=== PATIENT | female | born 1975 | race Caucasian/White ===

== ENCOUNTER 2019-10-20 08:06 | Outpatient (CLI) | payer OTHER, SELFPAY ==
--- NOTE | ~2019-10-20 | XR_ITS ---
EXAMINATION: XR chest 2V 10/20/2019 08:36 INDICATION: Dyspnea. Cough. PROCEDURE: 2 view chest COMPARISON: 03/13/2010 FINDINGS: The lungs are clear. The cardiomediastinal silhouette is within normal limits. There are no pleural effusions. There is no pneumothorax suspected. IMPRESSION: 1: NO ACUTE CARDIOPULMONARY DISEASE. Reviewed, dictated and finalized at location A.
== END 2019-10-20 08:07 | disposition home or self-care (01) ==
LOC: ANHIMG 08:17
DX: R06.09 Other forms of dyspnea (principal)
CPT/HCPCS: 71046

== ENCOUNTER 2020-01-04 06:37 | Emergency (ER) | payer OTHER, SELFPAY ==
--- NOTE | ~2020-01-04 | CT_ITS ---
EXAMINATION: CT abdomen pelvis wo con DATE: 01/04/2020 07:41 INDICATION: Left flank pain. Nausea. Low abdominal cramping. TECHNIQUE: Computed tomography (CT) of the abdomen and pelvis was performed without intravenous contr ast. Automated exposure control and iterative reconstruction technique were employed. The dose-length product was 435.93 mGy-cm. COMPARISON: None. FINDINGS: The visualized portions of the lung bases demonstrate minimal atelectasis. No pleural effus ion. The heart size is normal. No pericardial effusion. The liver, spleen, gallbladder, pancreas, adr enal glands, and left kidney are normal. There is a 2 mm stone in right kidney. There are fibroids in the uterus. There are no dilated loops of bowel. The appendix contains appendicoliths, but is otherw ise normal. There are no pathologically enlarged lymph nodes. There is no free intraperitoneal fluid. There is a chronic compression fracture of T12. There is mild lumbar spondylosis. IMPRESSION: 1. Uterine fibroids. 2. 2 mm nonobstructing right kidney stone. Reviewed, dictated and finalized at location A.
[2020-01-04 06:38] VITALS: BP 142/108; PULSE 87; RESP 14; TEMP 36.8; O2SAT 100
[2020-01-04 07:02] LABS: Basophils Absolute Auto 0.1 K/mm3 (0.0-0.1); Basophils Percent Auto 0.5 % (0.2-1.2); Eosinophils Absolute Auto 0.2 K/mm3 (0-0.3); Eosinophils Percent Auto 1.1 % (0-4.4); Hematocrit 41.8 % (37.0-47.0); Hemoglobin 14.2 g/dL (12.0-15.0); Immature Granulocyte Absolute 0.04 K/mm3 (0.00-0.031); Immature Granulocyte Percent A 0.3 % (0-0.5); Lymphocytes Percent Auto 16.7 % (18.3-44.2); Mean Corpuscular Hemoglobin 30.9 pg (26-34); Mean Corpuscular Volume 91.1 fl (80-100); Mean Platelet Volume 9.8 fl (7.4-10.4); Monocytes Absolute Auto 0.9 K/mm3 (0.1-0.6); Monocytes Percent Auto 6.3 % (2.6-8.5); Neutrophils Absolute Auto 10.4 K/mm3 (1.3-6.7); Neutrophils Percent Auto 75.1 % (45.5-73.1); Platelet Count Result 367 k/mm3 (150-375); Red Blood Count 4.59 M/mm3 (4.2-5.4); Red Cell Distribution Width 12.6 % (11.5-14.5); White Blood Count 13.8 K/mm3 (4.5-10.0)
[2020-01-04 07:10] LABS: Add Urine Microscopic? YES; Appearance Urine Cloudy (Clear); Bilirubin Urine Negative (Negative); Blood Urine 3+ (Negative); Glucose Urine UA Negative (Negative); Ketones Urine Negative (Negative); Leukocyte Esterase Ur 1+ LEU/UL (Negative); Mucus Urine Few /lpf; Nitrate Urine Positive (Negative); Protein Urine 2+ mg/dL (Negative); RBC Urine >75 /hpf (0-2); Specific Grav Ur 1.018 (1.001-1.035); Squamous Epithelial Cell Urine Moderate /hpf (Few); Urobilinogen Urine Negative mg/dL (<2.0); WBC Clumps Urine Present /HPF; WBC Urine >75 /hpf
[2020-01-04 07:13] LABS: Alanine Aminotransferase 21 U/L (4-35); Albumin Level 4.3 g/dL (3.5-5.1); Alkaline Phosphatase 73 U/L (38-126); Anion Gap 6 mmol/L (8-16); Aspartate Amino Transferase 27 U/L (14-36); Bilirubin,Total 0.3 mg/dL (0.2-1.3); Blood Urea Nitrogen 12 mg/dL (7-17); Carbon Dioxide 24 mmol/L (22-30); Chloride 106 mmol/L (98-107); Estimated Glomerular Filt Rate > 60; Glucose 112 mg/dL (65-105); Lipase 49 U/L (23-300); Potassium 3.9 mmol/L (3.4-5.0); Sodium 136 mmol/L (137-145)
[2020-01-04 07:14] LABS: Color Urine Dark Red (Yellow)
--- NOTE | 2020-01-04 07:15 | ED.ABDPAIN ---
HPI - Abdominal Pain General Chief Complaint: Abdominal Pain Stated Complaint: lower abd cramping Time Seen by Provider: 01/04/20 06:59 History of Present Illness HPI narrative: Patient presents with her for lower abdominal pain today. She started her. 4 days ago and she said that her menstrual cramps have gotten worse that she is gotten older. When she got up this morning the lower abdominal pain was so severe that she bent over and had significant diaphoresis and chills and her recorded temperature was 94. She did not have nausea or vomiting. She has blood in her urine just because of her vaginal bleeding. Now the pain is 7 out of 10 but it was 10 out of 10 at home. She does not know if she has fibroids. 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 Her previous surgeries include breast lumpectomy. She smokes cigarettes, drinks alcohol, does not do marijuana. She takes medication for cholesterol. She works in healthcare. MD elicited complaint: abdominal pain Pertinent past history: none Onset (ago): hour(s) Pain Consistency: constant Location: LUQ, LLQ and suprapubic Severity: severe Pain scale (0-10): 7 Quality: cramping Radiation: back Exacerbating factors: nothing Relieving factors: nothing Associated symptoms: chills Related Data Hx Last Menstrual Period: 4 days ago Patient : No Home Medications Medication Instructions Recorded Confirmed rosuvastatin mg 01/04/20 Allergies Allergy/AdvReac Type Severity Reaction Status Date / Time codeine Allergy Unknown Insomnia Verified 01/04/20 06:48 Iodinated Contrast Media Allergy Unknown Rash Verified 01/04/20 06:48 Penicillins Allergy Unknown Unknown Verified 01/04/20 06:48 hydrocodone Allergy Insomnia Verified 01/04/20 06:48 Review of Systems Review of Systems: Narrative: CONSTITUTIONAL: Denies fever, but has chills, and sweats. EYES: Denies visual changes, redness, or discharge. ENT: Denies rhinorrhea, congestion, sore throat, or otalgia. CARDIOVASCULAR: Denies chest pain, palpitations, or edema. RESPIRATORY: Denies cough or dyspnea. GASTROINTESTINAL: She has abdominal pain, but not nausea, vomiting, or diarrhea. GENITOURINARY: Denies dysuria or hematuria. SKIN: Denies rash or itching. MUSCULOSKELETAL: Denies back pain, joint pain, or myalgia. NEUROLOGIC: Denies headache, numbness, or weakness. . PMFSH Past Medical History Medical History Hypercholesterolemia Surgical History Surgical History (Updated 01/04/20 @ 07:18 by Shirin Reddy MD) History of lumpectomy of both breasts Family History Family History (Updated 08/24/16 @ 23:56 by DOCTOR UNKNOWN) Father Hypertension Family history of elevated blood lipids, Onset Age: 62 Family history of coronary artery disease, Onset Age: 62 Patient's father is Acute myocardial infarction Mother Hypertension Family history of elevated blood lipids Patient's mother is in good health Sibling Hypertension Family history of elevated blood lipids Family history of malignant melanoma Patient's sister is in good health Patient's brother is in good health Grandparent Family history of coronary artery disease, Onset Age: 78 Social History Social History (Updated 01/04/20 @ 07:18 by Shirin Reddy MD) Smoking status: Current every day smoker Alcohol intake: current Substance use: never Gender identity (if verbalized by the patient): Female Exam Narrative: Exam Narrative: GENERAL: Well-appearing, well-nourished, and in no acute distress. HEAD: Normocephalic, atraumatic. EYES: PERRLA and EOMI. ENT: Nares clear, no rhinorrhea or epistaxis. Mucous membranes moist. NECK: Supple. CHEST: Clear to auscultation. No respiratory distress. HEART: Regular rate and rhythm. No murmur heard. Normal peripheral pulses. ABDOMEN: Soft, tender, nondistended, normal active bowel sounds. EXTREMITIES: Normal rang
[2020-01-04] MEDS: MORPHINE SULFATE 4 MG/ML INJ IV PUSH (07:20)
[2020-01-04] MEDS: SODIUM CHLORIDE 0.9% IV 1,000 ML 999 ML IV CONT (07:33)
[2020-01-04 08:18] VITALS: BP 122/82; PULSE 67; RESP 18; O2SAT 99
--- NOTE | 2020-01-08 09:01 | PC.NURSE ---
LATE ENTRY This note is being entered to document information to the patient's record. The following information was omitted on [01/08/20], by [Marilin LUCIANO stopped at 0833 on 01/04/20].
== END 2020-01-04 08:31 | disposition home or self-care (01) ==
PROVIDERS: Emergency Medicine; Emergency Provider Emergency Medicine
DX: N39.0 Urinary tract infection, site not specified (principal); D25.9 Leiomyoma of uterus, unspecified; S22.080A Wedge compression fracture of T11-T12 vertebra, initial encounter for closed fracture; N20.0 Calculus of kidney; E78.5 Hyperlipidemia, unspecified; F17.210 Nicotine dependence, cigarettes, uncomplicated; X58.XXXA Exposure to other specified factors, initial encounter
CPT/HCPCS: 36415; 74176; 80053; 81001; 81025; 83690; 85025; 87077; 87086; 87088; 87186; 96365; 96375; 99284; J0696; J2270; J7030

== ENCOUNTER → 2020-01-15 09:07 | Outpatient (CLI) | payer OTHER, SELFPAY ==
--- NOTE | ~2020-01-15 | DEXA_ITS ---
Bone Density Report Name: Marisol Reyes Age: 44 Sex: Female Ethnicity: White Date of : 1975 Indication: prior fracture; Referring Provider: Avelino Nation Study: Bone densitometry was performed. Exam Date: January 15, 2020 Accession number: [id number] Bone Density: Region BMD T-score Z-score Classification AP Spine (L1-L4) 1.074 0.2 0.8 Normal Femoral Neck (Left) 0.768 -0.7 -0.2 Normal Total Hip (Left) 0.937 0.0 0.3 Normal Femoral Neck (Right) 0.770 -0.7 -0.2 Normal Total Hip (Right) 0.886 -0.5 -0.1 Normal Total Hip Mean 0.912 -0.3 0.1 Normal World Health Organization criteria for BMD impression classify patients as: Normal (T-score at or above -1.0), Osteopenia (T-score between -1.0 and -2.5), or Osteoporosis (T-score at or below -2.5). 10-year Fracture Risk: FRAX not reported because: Premenopausal woman All T-scores for Spine Total, Hip Total, Femoral Neck at or above -1.0 Prior hip or vertebral fracture Clinical Information Provided by Patient: Have had a previous hip or vertebral fracture Has had a low trauma fracture Smokes Has used the following medications: Vitamin D, some vitamins Patient maximum height was 64.63 No regular weight bearing exercise Drinks caffeinated beverages Onset of menses at age 8 Premenopausal Number of children 0 Impression: The patient's bone mass is within expected range for age, gender and ethnicity. The patient has risk factors, including: smoking, previous fracture. Discussion: BONE DENSITY IS WITHIN EXPECTED LIMITS FOR AGE, SEX AND RACE. HISTORY OF FRACTURE. Although there is a predictable association between low bone mass and the risk of osteoporotic fractures in untreated postmenopausal women, there are no data relating bone density and fracture risk in younger women. The ISCD position is that the diagnosis of ?low bone mass? or ?osteoporosis? should not be made on densitometric criteria alone. WHO criteria only apply to postmenopausal women. Further evaluation should be considered given the patient's history of fracture at a young age. The patient should follow a healthful lifestyle (good nutrition with adequate calcium and vitamin D, and appropriate weight-bearing exercise). Follow-Up: Consider a repeat BMD and Vertebral Fracture Assessment (VFA) exam in 2 years or sooner if medically necessary, to reassess this patient's status. Reported by: [facility] on 01/15/2020 11:40:00 AM. Reviewed, dictated and finalized at location AIris QUACH
== END ==
DX: S22.080S Wedge compression fracture of T11-T12 vertebra, sequela (principal)
CPT/HCPCS: 77080

== ENCOUNTER → 2020-01-22 08:13 | Outpatient (CLI) | payer OTHER, SELFPAY ==
--- NOTE | ~2020-01-22 | US_ITS ---
EXAMINATION: US transvaginal DATE: 01/22/2020 08:50 INDICATION: Uterine fibroids on CT TECHNIQUE: Multiple endovaginal sonographic images of the pelvis were obtained. COMPARISON: CT, 01/04/2020 FINDINGS: The uterus measures 9.4 x 5.0 x 5.5 cm. There are several fibroids of the uterus which are in an intramural and submucosal location. One submucosal fibroid measuring 12 mm exerts mass effect o n the posterior endometrium. The largest intramural fibroid is partially calcified and measures up to 2.7 cm. Multiple nabothian cysts are also noted. The endometrial complex measures 9 mm. The right ov damaris measures 3.3 x 2.5 x 2.5 cm. The left ovary measures 2.5 x 1.8 x 1.5 cm. There is normal vascular flow in the ovaries. There is no free fluid in the pelvis. IMPRESSION: 1. Multiple uterine fibroids at least one of which is submucosal in location and exerts mass effect o n the endometrium. Reviewed, dictated and finalized at location A. IMPRESSION: 1. Multiple uterine fibroids at least one of which is submucosal in location an d exerts mass effect on the endometrium.
== END ==
DX: D25.9 Leiomyoma of uterus, unspecified (principal)
CPT/HCPCS: 76830

== ENCOUNTER 2020-03-12 10:35 | Emergency (ER) | payer OTHER, SELFPAY ==
[2020-03-12 10:42] VITALS: BP 137/87; PULSE 100; RESP 18; TEMP 37.2; O2SAT 100
--- NOTE | 2020-03-12 10:46 | ED.EAR ---
HPI - Ear Problem General Chief complaint: Ear Stated complaint: ears clogged Time Seen by Provider: 03/12/20 10:38 Source: patient Mode of arrival: ambulatory Limitations: no limitations History of Present Illness HPI Narrative: 44 y/o female. PMH includes: HLD. Presents to ED today with acute complaints of bilateral ears clogged up . She reports worsening manifestations in past 1 week. She states that she usually gets clogged ears this time of year . Pt reports mild RT auditory 'aching', as well as 'muffled hearing' bilateral. No fever, chills. No congestion, cough. No severe auditory pain or complete auditory loss. She has been seen per her PCP within past 48 hours, and notes to have been started on Neomycin/Ploymixin Otic. She reports no relief with these gtts. No additional acute c/o upon PE. MD Complaint: decreased hearing Related Data Home Medications Medication Instructions Recorded Confirmed rosuvastatin 20 mg 01/04/20 [id number] 2 drp TID 03/12/20 03/12/20 Allergies Allergy/AdvReac Type Severity Reaction Status Date / Time codeine Allergy Unknown Insomnia Verified 01/04/20 06:48 Iodinated Contrast Media Allergy Unknown Rash Verified 01/04/20 06:48 Penicillins Allergy Unknown Unknown Verified 01/04/20 06:48 hydrocodone Allergy Insomnia Verified 01/04/20 06:48 Review of Systems Review of Systems: Narrative: CONSTITUTIONAL: Denies fever, chills, sweats. EYES: Denies visual changes, redness, discharge. ENT: Denies rhinorrhea, congestion, sore throat, otalgia. Positive 'muffled hearing', ear wax. CARDIOVASCULAR: Denies chest pain, palpitations, edema. RESPIRATORY: Denies dyspnea, wheezing, cough GASTROINTESTINAL: Denies abdominal pain, nausea, vomiting, diarrhea. GENITOURINARY: Denies dysuria, hematuria, abnormal discharge SKIN: Denies rash or itching. MUSCULOSKELETAL: Denies acute back pain, joint pain, or myalgia. NEUROLOGIC: Denies numbness, or focal weakness. PSYCHIATRIC: Denies anxiety or depression. [facility] Past Medical History Medical History Hypercholesterolemia Surgical History Surgical History History of lumpectomy of both breasts Family History Family History Father Hypertension Family history of elevated blood lipids, Onset Age: 62 Family history of coronary artery disease, Onset Age: 62 Patient's father is Acute myocardial infarction Mother Hypertension Family history of elevated blood lipids Patient's mother is in good health Sibling Hypertension Family history of elevated blood lipids Family history of malignant melanoma Patient's sister is in good health Patient's brother is in good health Grandparent Family history of coronary artery disease, Onset Age: 78 Social History Social History Smoking status: Current every day smoker Alcohol intake: current Substance use: never Gender identity (if verbalized by the patient): Female Exam Narrative: Exam Narrative: GENERAL: This is a well-nourished, well-developed patient, in no apparent distress. HEAD: normocephalic, atraumatic. EYES: PERRL. Sclera clear/white. Vision is grossly intact. EARS: External ears normal, auditory canals with cerumen accumulation bilateral (RT > burdensome than LT), TMs normal without perforation. Hearing grossly intact. NOSE: External nose normal with no obvious nasal discharge, nares without redness, no rhinorrhea. THROAT: Mucous membranes moist, posterior pharynx clear. NECK: Neck supple, non-tender without lymphadenopathy, masses or thyromegaly. CARDIOVASCULAR: Regular rate and rhythm without murmurs, gallops, or rubs. RESPIRATORY: Clear to auscultation. Breath sounds equal bilaterally. No wheezes, rales, or rhonchi.
[2020-03-12 10:51] VITALS: BP 137/87; PULSE 100; RESP 18; TEMP 37.2; O2SAT 100
--- NOTE | 2020-03-12 10:57 | PC.NURSE ---
ear irrigation with warm water by Chandni SIERRA
== END 2020-03-12 11:07 | disposition home or self-care (01) ==
PROVIDERS: Emergency Provider Nurse Practitioner Adult Health
DX: H61.23 Impacted cerumen, bilateral (principal); H65.03 Acute serous otitis media, bilateral; F17.200 Nicotine dependence, unspecified, uncomplicated; E78.00 Pure hypercholesterolemia, unspecified
CPT/HCPCS: 69210; 99213; A9270; G0463

== ENCOUNTER 2020-06-06 10:04 | Emergency (ER) | payer OTHER, SELFPAY ==
--- NOTE | 2020-06-06 10:16 | ED.GENADULT ---
HPI - General Adult General Chief complaint: Urogenital-Female Stated complaint: uti Time Seen by Provider: 06/06/20 10:21 Source: patient and RN notes reviewed Mode of arrival: ambulatory Limitations: no limitations History of Present Illness HPI narrative: 45-year-old female presents with urinary complaints for the past 3 days. Marisol reports on 06/03/20 she started having burning, frequency, urgency, diffused lower abdominal, and vomiting, diffused lower abdominal and vomiting has resolved, other symptoms increased over the past 24 hours. No treatment. History of Nephrolithiasis and hematuria. Denies fever or chills. No significant pelvic pain. No vaginal discharge.? No concerns for STDs. Exacerbating factors consist of urinating.? Denies hematuria or abnormal vaginal bleeding. Denies being , LMP currently started on 05/28/20. No flank pain. Remains active. The patient reports she have not been diagnosed with COVID-19. The patient reports she is not waiting for the results of a COVID-19 lab test. The patient reports she do not have chills, weakness, or fatigue. The patient reports she do not have a new or worsening cough or shortness of breath. Denies chest pain. The patient reports she do not have any rhinorrhea, congestion, sore throat, loss of taste, nausea, vomiting, abdominal pain, and diarrhea. Tolerating po intake well. Denies recent traveling. Denies concerns for COVID-19 or exposures been home with limited outdoor exposure except for essential household needs, work, and return home. At this time, patient is not suspected of having COVID-19. Some parts of this dictation were generated by voice recognition software and may contain typographical and/or grammatical inaccuracies. Related Data Home Medications Medication Instructions Recorded Confirmed rosuvastatin 20 mg DAILY 01/04/20 06/06/20 Allergies Allergy/AdvReac Type Severity Reaction Status Date / Time codeine Allergy Unknown Insomnia Verified 01/04/20 06:48 Iodinated Contrast Media Allergy Unknown Rash Verified 01/04/20 06:48 Penicillins Allergy Unknown Unknown Verified 01/04/20 06:48 hydrocodone Allergy Insomnia Verified 01/04/20 06:48 ciprofloxacin [From Cipro] AdvReac Abdominal Verified 06/06/20 10:46 Pain Review of Systems Review of Systems: Narrative: CONSTITUTIONAL: Denies fever, chills, sweats. EYES: Denies visual changes, redness, discharge. ENT: Denies rhinorrhea, congestion, sore throat, otalgia. CARDIOVASCULAR: Denies chest pain, palpitations, edema. RESPIRATORY: Denies dyspnea, wheezing, cough. GASTROINTESTINAL: Denies abdominal pain, nausea, vomiting, diarrhea. GENITOURINARY: Complains of hematuria, dysuria (burning, frequency, and urgency). Denies abnormal discharge. SKIN: Denies rash or itching. MUSCULOSKELETAL: Denies acute back pain, joint pain, or myalgia. NEUROLOGIC: Denies numbness or focal weakness. PSYCHIATRIC: Denies anxiety or depression. All systems reviewed & are unremarkable except as noted in HPI and below. [facility] Past Medical History Medical History (Updated 06/06/20 @ 11:13 by COLE Beltran) Hypercholesterolemia Kidney stones Uterine fibroid UTI (urinary tract infection) Surgical History Surgical History History of lumpectomy of both breasts Family History Family History Father Hypertension Family history of elevated blood lipids, Onset Age: 62 Family history of coronary artery disease, Onset Age: 62 Patient's father is Acute myocardial infarction Mother Hypertension Family history of elevated blood lipids Patient's mother is in good health Sibling Hypertension Family history of elevated blood lipids Family history of malignant melanoma Patient's sister is in good health Patient's brother is in good health Grandparent
[2020-06-06 10:19] VITALS: BP 145/89; PULSE 66; RESP 20; TEMP 37; O2SAT 99
== END 2020-06-06 10:45 | disposition home or self-care (01) ==
PROVIDERS: Emergency Provider Nurse Practitioner Family
DX: R30.0 Dysuria (principal); R31.9 Hematuria, unspecified; F17.210 Nicotine dependence, cigarettes, uncomplicated; E78.00 Pure hypercholesterolemia, unspecified
CPT/HCPCS: 81003; 87077; 87086; 87088; 87186; 99213; G0463

== ENCOUNTER → 2020-06-13 15:46 | Outpatient (CLI) | payer OTHER, SELFPAY ==
--- NOTE | ~2020-06-13 | XR_ITS ---
XR abdomen/kub 1V DATE: 06/13/2020 16:03 INDICATION: Right kidney stone TECHNIQUE: AP projection, 2 views COMPARISON: 01/04/[address] abdomen pelvis FINDINGS: A couple of calcified pelvic phleboliths are noted on each side, present on 01/04/2020 CT ab domen pelvis examination. No obvious urinary tract calcification is evident on the current KUB. There was one punctate nonobstr ucting right renal calculus on 01/04/2020 which is neither definitively confirmed or excluded on this KUB. No visceromegaly is evident. The psoas shadows are intact. No bowel obstruction is detected. The lung bases are clear. Heart size appears within normal range. Again noted is compression fracture deformity of T12. IMPRESSION: Nonspecific abdomen Reviewed, dictated and finalized at Location A. Reviewed, dictated and finalized at location A. CLINICAL ADVISOR IMPRESSION: Nonspecific abdomen
== END ==
PROVIDERS: Visit Provider Urology
DX: N20.0 Calculus of kidney (principal)
CPT/HCPCS: 74018

== ENCOUNTER 2020-12-19 10:13 | Emergency (ER) | payer BC, SELFPAY ==
[2020-12-19 10:37] VITALS: BP 144/93; PULSE 82; RESP 18; TEMP 37.3; O2SAT 100
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
== END 2020-12-19 11:27 | disposition home or self-care (01) ==
PROVIDERS: Emergency Provider Nurse Practitioner
DX: L08.9 Local infection of the skin and subcutaneous tissue, unspecified (principal); F17.210 Nicotine dependence, cigarettes, uncomplicated; E78.00 Pure hypercholesterolemia, unspecified
CPT/HCPCS: 99212; G0463

== ENCOUNTER → 2021-01-31 10:37 | Outpatient (CLI) | payer BC, SELFPAY ==
--- NOTE | ~2021-01-31 | US_ITS ---
EXAMINATION: US pelvic complete w TV DATE: 01/31/2021 11:03 INDICATION: Follow-up fibroids. Comparison:No prior studies for comparison. TECHNIQUE: Multiple transabdominal and endovaginal sonographic images of the pelvis performed. FINDINGS: The uterus measures 8.8 x 5.4 x 6.9 cm. There are multiple uterine fibroids, largest measur ing 2.7 cm. The endometrial complex measures 10 mm. The right ovary is not visualized. Left ovary measures 3.1 x 2.3 x 2.1 cm. There is no free fluid in the pelvis. There are no abnormal masses seen on either side. IMPRESSION: 1. Uterine fibroids, largest measuring 2.7 cm. Reviewed, dictated and finalized at location A.
== END ==
PROVIDERS: Visit Provider Obstetrics & Gynecology
DX: N92.1 Excessive and frequent menstruation with irregular cycle (principal); D25.9 Leiomyoma of uterus, unspecified
CPT/HCPCS: 76830; 76856

== ENCOUNTER 2023-08-01 10:21 | Emergency (ER) | payer BC, SELFPAY ==
--- NOTE | ~2023-08-01 | US_ITS ---
EXAMINATION: US pelvic complete w TV DATE: 08/01/2023 14:26 INDICATION: Left-sided flank pain and left ovarian cyst. TECHNIQUE: Multiple transabdominal and endovaginal sonographic images of the pelvis were obtained. COMPARISON: 01/31/2021 FINDINGS: The anteverted uterus measures 9.0 x 5.2 x 6.3 cm. The endometrial complex measures 7 mm in thicknes s. There are uterine fibroids, the largest including 3.0 cm and 1.6 similar hypoechoic fibroids in th e posterior uterine body and a 2.3 cm fibroid at the right anterior uterine fundus with internal echo genic and shadowing coarse calcifications. There is a 4.8 3.7 cm mixed solid and cystic mass at the c ervix. The right ovary is not visualized The left ovary measures 5.4 x 3.75 4.0 cm and contains a 4.1 x 3.6 x 3.1 cm simple appearing anechoic left ovarian cyst. There is a second 1.2 cm anechoic left ovarian cyst/follicle. There is normal vascular flow in the ovaries. There is no free fluid in the pelvis. IMPRESSION: 1. Nonspecific 4.8 x 3.7 cm mixed solid and cystic mass at the cervix which could be either malignant including cervical adenocarcinoma or adenoma malignum or benign including tunnel cluster, uterine ce rvicitis, endocervical hyperplasia or multiple nabothian cysts. 2. A couple simple appearing anechoic left ovarian cysts/follicles the larger measuring 4.1 cm. 3. Several uterine fibroids. Reviewed, dictated and finalized at location L. IMPRESSION: 1. Nonspecific 4.8 x 3.7 cm mixed solid and cystic mass at the cervix which cou ld be either malignant including cervical adenocarcinoma or adenoma malignum or benign including tunnel cluster, uterine cervicitis, endocervical hyperplasia or multiple nabothian cysts. 2. A couple simple appearing anechoic left ovarian cysts/follicles the larger m easuring 4.1 cm. 3. Several uterine fibroids.
--- NOTE | ~2023-08-01 | CT_ITS ---
EXAMINATION: CT abdomen pelvis wo con DATE: 08/01/2023 12:22 INDICATION: Left flank pain. TECHNIQUE: Computed tomography (CT) of the abdomen and pelvis was performed without intravenous contr ast. Automated exposure control and iterative reconstruction technique were employed. The dose-length product was 295.57 mGy-cm. COMPARISON: CT abdomen and pelvis 01/04/2020 FINDINGS: The visualized portions of the lung bases demonstrate mild atelectasis. No pleural effusion . The heart size is normal. No pericardial effusion. The liver, gallbladder, spleen, pancreas, adrena l glands, and kidneys are normal. There is no urolithiasis. There is a 3.6 cm cyst in left ovary. The appendix is normal. There are no dilated loops of bowel. Aortic atherosclerosis is noted. There are no pathologically enlarged lymph nodes. There is no free intraperitoneal fluid. There are fibroids in the uterus. There is mild thoracic spondylosis. There is a chronic compression fracture of T12. IMPRESSION: 1. 3.6 cm cyst in left ovary, likely a follicular cyst. 2. No urolithiasis. 3. Uterine fibroids. Reviewed, dictated and finalized at location A.
[2023-08-01 10:40] VITALS: BP 134/78; PULSE 98; RESP 16; TEMP 36.9; O2SAT 99
[2023-08-01 11:46] LABS: Appearance Urine Clear (Clear); Bilirubin Urine Negative (Negative); Blood Urine Negative (Negative); Color Urine Yellow (Yellow); Glucose Urine UA Negative (Negative); Ketones Urine Negative (Negative); Leukocyte Esterase Ur Negative LEU/UL (Negative); Nitrate Urine Negative (Negative); Protein Urine Negative (Negative); Urobilinogen Urine 0.2 mg/dL (<2.0); pH Urine 6.5 (5.0-9.0)
[2023-08-01 11:49] LABS: Add Urine Microscopic? NO
[2023-08-01] MEDS: KETOROLAC 30 MG/ML VIAL (*BKC) IV PUSH (12:12)
[2023-08-01] MEDS: SODIUM CHLORIDE 0.9% IV 1,000 ML 999 ML IV CONT (12:12)
[2023-08-01 12:30] LABS: Basophils Percent Auto 0.3 % (0.2-1.2); Eosinophils Absolute Auto 0.1 K/mm3 (0-0.3); Eosinophils Percent Auto 0.8 % (0-4.4); Hematocrit 41.6 % (37.0-47.0); Hemoglobin 13.7 g/dL (12.0-15.0); Immature Granulocyte Absolute 0.06 K/mm3 (0.00-0.031); Immature Granulocyte Percent A 0.5 % (0-0.5); Lymphocytes Absolute Auto 2.09 K/mm3 (0.9-3.2); Lymphocytes Percent Auto 17.6 % (18.3-44.2); Mean Corpuscular HGB Conc 32.9 g/dl (32-36); Mean Corpuscular Hemoglobin 29.8 pg (26-34); Mean Corpuscular Volume 90.4 fl (80-100); Mean Platelet Volume 9.4 fl (7.4-10.4); Monocytes Absolute Auto 0.8 K/mm3 (0.1-0.6); Monocytes Percent Auto 6.5 % (2.6-8.5); Neutrophils Absolute Auto 8.8 K/mm3 (1.3-6.7); Neutrophils Percent Auto 74.3 % (45.5-73.1); Platelet Count Result 409 k/mm3 (150-375); White Blood Count 11.9 K/mm3 (4.5-10.0)
[2023-08-01 12:37] LABS: Alanine Aminotransferase 20 U/L (6-35); Albumin Level 4.3 g/dL (3.5-5.1); Alkaline Phosphatase 85 U/L (38-126); Anion Gap 9 mmol/L (8-16); Aspartate Amino Transferase 26 U/L (14-36); Bilirubin,Total 0.3 mg/dL (0.2-1.3); Blood Urea Nitrogen 7 mg/dL (7-17); Calcium 9.4 mg/dL (8.4-10.2); Carbon Dioxide 22 mmol/L (22-30); Chloride 107 mmol/L (98-107); Estimated CRCL calculation 86 ml/min; Estimated Glomerular Filt Rate > 60; Glucose 91 mg/dL (65-110); Potassium 3.7 mmol/L (3.4-5.0); Sodium 138 mmol/L (137-145)
[2023-08-01 14:20] VITALS: BP 118/79; PULSE 81; RESP 17; O2SAT 100
--- NOTE | 2023-08-01 15:18 | ED.GENADULT ---
HPI - General Adult General Chief complaint: Back Pain/Injury Stated complaint: L FLANK PAIN Time Seen by Provider: 08/01/23 11:32 History of Present Illness HPI narrative: patient is a 48-year-old female who presents ER with left flank pain and left lower quadrant abdominal pain. The flank pain began 2 days ago. It started radiating around to the abdomen. She was seen by her PCP yesterday. Diagnosed with a UTI and started on Bactrim. Pain settled into the left lower quadrant today so she came in for further evaluation. No fevers or chills or sweats. No urinary frequency urgency. No history of diverticulitis/diverticulosis. No history of kidney stones. Related Data Home Medications Medication Instructions Recorded Confirmed rosuvastatin 20 mg tablet 20 mg DAILY 01/04/20 12/19/20 Allergies Allergy/AdvReac Type Severity Reaction Status Date / Time codeine Allergy Unknown Insomnia Verified 12/19/20 11:19 Iodinated Contrast Media Allergy Unknown Rash Verified 12/19/20 11:19 Penicillins Allergy Unknown Unknown Verified 12/19/20 11:19 hydrocodone Allergy Insomnia Verified 12/19/20 11:19 shellfish derived Allergy Rash Verified 08/01/23 11:36 ciprofloxacin [From Cipro] AdvReac Abdominal Verified 12/19/20 11:19 Pain Review of Systems Review of Systems: All systems reviewed & are unremarkable except as noted in HPI and below Constitutional: Constitutional: Reports no additional constitutional complaints ENT: Reports system reviewed and no additional complaints, except as documented Cardiovascular: Cardiovascular: Reports no additional cardiovascular complaints Respiratory: Respiratory: Reports no additional respiratory complaints Gastrointestinal: Gastrointestinal: Reports abdominal pain, Denies diarrhea, Denies nausea and Denies vomiting Genitourinary: Genitourinary: Denies hematuria, Denies nocturia, Denies pelvic pain and Reports flank pain [facility] Past Medical History Medical History (Updated 08/01/23 @ 16:13 by Alok Mason MD) Hypercholesterolemia Kidney stones Uterine fibroid UTI (urinary tract infection) Surgical History Surgical History History of lumpectomy of both breasts Family History Family History Father Hypertension Family history of elevated blood lipids, Onset Age: 62 Family history of coronary artery disease, Onset Age: 62 Patient's father is Acute myocardial infarction Mother Hypertension Family history of elevated blood lipids Patient's mother is in good health Sibling Hypertension Family history of elevated blood lipids Family history of malignant melanoma Patient's sister is in good health Patient's brother is in good health Grandparent Family history of coronary artery disease, Onset Age: 78 Social History Social History (Updated 06/06/20 @ 11:13 by COLE Beltran) Smoking status: Current every day smoker Tobacco type: cigarettes Second hand tobacco smoke exposure: No Alcohol intake: current Substance use: never Living arrangements: with family Additional living arrangements comments: spouse Occupation/Education: occupation Gender identity (if verbalized by the patient): Female Sexual Orientation (if Verbalized by the Patient): Straight or Heterosexual Exam Narrative: GENERAL: Well-appearing, well-nourished, and in no acute distress. HEAD: Normocephalic, atraumatic. ENT: Mucous membranes moist. NECK: Supple. CHEST: Clear to auscultation. No respiratory distress. HEART: Regular rate and rhythm. Normal peripheral pulses. ABDOMEN: Soft, tender palpation left lower quadrant with guarding, nondistended, normal active bowel sounds. EXTREMITIES: Normal range of motion. No edema. SKIN: Warm, dry, no rash. NEURO: Alert and oriented x3. PSYCH: Normal mood and affect.
[2023-08-01 16:35] VITALS: BP 118/73; PULSE 65; RESP 17; TEMP 36.7; O2SAT 100
== END 2023-08-01 16:36 | disposition home or self-care (01) ==
PROVIDERS: Emergency Provider Emergency Medicine; PCP Nurse Practitioner
DX: N83.202 Unspecified ovarian cyst, left side (principal); N88.8 Other specified noninflammatory disorders of cervix uteri; E78.00 Pure hypercholesterolemia, unspecified; Z87.442 Personal history of urinary calculi; F17.210 Nicotine dependence, cigarettes, uncomplicated; D25.9 Leiomyoma of uterus, unspecified
CPT/HCPCS: 36415; 74176; 76830; 76856; 80053; 85025; 96361; 96374; 99284; J1885; J7030

== ENCOUNTER 2023-08-21 00:45 | Day surgery (SDC) | payer BC, SELFPAY ==
[2023-08-13 14:29] VITALS: BMI 24.9
--- NOTE | 2023-08-13 14:36 | PC.NURSE ---
Report to the Outpatient Waiting Room, entrance under the green pavilion located off [facility], at time 1000 on date 08/21/23. Planned Procedure Time: 1200. Time changes happen often and if your time is changed the preop area will call you the afternoon before. - You and your visitor will be asked to self-screen and do not enter if you have any COVID symptoms. - A mask is optional within the hospital at this time. Patients may have clear liquids (water, carbonated beverages, clear teas, apple juice) until 3 hours prior to surgery with a maximum of 20 ounces. - No food from midnight until time of surgery Take the following medications with a SIP of water the morning of surgery: NONE DO NOT STOP ANY OF YOUR OTHER PRESCRIPTION MEDICATIONS PRIOR TO SURGERY ?EXCEPT THE FOLLOWING Medications to discontinue per physician: N/A Date to take last dose: N/A Please no make-up, nail frisian, hairspray, perfume, deodorant, or body powder the day of surgery. No jewelry (including any body piercings) or valuables the day of surgery, leave them at home. Please take a shower or bath the night before, or the morning of, surgery with an antibacterial soap. Wear comfortable, loose fitting clothing. - Jewelry must be removed prior to entering the operating room. Rings and piercings that are not removed may be cut off. - The hospital will not accept responsibility for valuables. - Please leave all valuables, including medications, at home the day of surgery. If you are going home after surgery, a licensed driver material handler must drive you home. - NO public transportation without another adult if you receive anesthesia. - We recommend that an adult stay with you for 24 hours following discharge. - We also recommend that you do not drive, make important decision, drink alcoholic beverages, or take any drugs that were not prescribed by your health care provider for at least 24 hours after your discharge time. Follow any additional instructions given to you from your surgeon. If you or anyone in your household have experienced Covid symptoms in the past week, please notify your surgeon or the nurse liaison at the phone number below for possible testing. Telephone instructions given to DOMINGO ARREOLA and asked if any additional questions and then verbalized understanding. Patient advised to call surgeon office or pre surgery nurse liaison [phone] if any additional questions.
--- NOTE | 2023-08-20 13:26 | WPDANESEPPF ---
Anes - Initial Pre Proc Eval Procedure: Operation Date: 08/21/23 13:00 Proposed Procedures p Hysteroscopy Dilation and Curettage with Merry Endometrial Ablation - Eugenio Hylton MD Date/Time: 08/20/23 13:26 Surgeon: Eugenio Hylton MD Pre Op Diagnosis: excessive bleeding Patient Data Age: 48 Gender: F Height: 1.65 m Weight: 68 kg Allergies Allergy/AdvReac Type Severity Reaction Status Date / Time codeine Allergy Unknown hyperactivi Verified 08/21/23 12:12 ty Iodinated Contrast Media Allergy Unknown Rash Verified 08/21/23 12:12 Penicillins Allergy Unknown Unknown Verified 08/21/23 12:12 hydrocodone Allergy hyperactivi Verified 08/21/23 12:12 ty shellfish derived Allergy Rash Verified 08/21/23 12:12 ciprofloxacin [From Cipro] AdvReac Abdominal Verified 08/21/23 12:12 Pain Home Medications Medication Instructions Recorded Confirmed Type rosuvastatin 20 mg tablet 20 mg PO HS 01/04/20 08/21/23 History oxycodone-acetaminophen 5 mg-325 1 - 2 tablet PO Q6H PRN pain #30 08/21/23 Rx mg tablet (Percocet) tabs Patient hx anesthesia problems: none Family hx anesthesia problems: none Results Review: All pre-operative results and documents have been reviewed as part of the pre-operative evaluation. [facility] Past Medical History Medical History (Updated 08/21/23 @ 12:07 by Eugenio Hylton MD) Anxiety Hypercholesterolemia Kidney stones Uterine fibroid UTI (urinary tract infection) Surgical History Surgical History History of lumpectomy of both breasts Family History Family History Father Hypertension Family history of elevated blood lipids, Onset Age: 62 Family history of coronary artery disease, Onset Age: 62 Patient's father is Acute myocardial infarction Mother Hypertension Family history of elevated blood lipids Patient's mother is in good health Sibling Hypertension Family history of elevated blood lipids Family history of malignant melanoma Patient's sister is in good health Patient's brother is in good health Grandparent Family history of coronary artery disease, Onset Age: 78 Social History Social History (Updated 06/06/20 @ 11:13 by COLE Beltran) Smoking packs per day: 1 Smoking cigarettes per day: 20.0 Years smoked: 25 Smoking pack-years: 25.00 Smoking status: Current every day smoker Tobacco type: cigarettes Second hand tobacco smoke exposure: No Alcohol intake: current Drinks per week: 2 Substance use: never Substance use type: does not use Living arrangements: with family Additional living arrangements comments: spouse Occupation/Education: occupation Gender identity (if verbalized by the patient): Female Sexual Orientation (if Verbalized by the Patient): Straight or Heterosexual Spiritual care concerns: No Anes - Eval Final PreProcedure Day of Procedure 08/20/23 13:26 Patient weight: normal Heart: regular rate and rhythm Lungs: clear to auscultation and normal air movement Airway: Mallampati scale class II Neurological: alert and oriented Last oral intake: >/= 8 hours ASA classification: II Emergent: no Anesthetic plan: proceed Anesthesia type and monitoring: general GIVS and standard monitoring Results Review: All pre-operative results and documents have been reviewed as part of the pre-operative evaluation. Informed Consent: The patient's anesthetic plan and its attendant risks and benefits were discussed with the patient/family/POA. Questions were solicited and answers provided to the satisfaction of the patient/family/POA.
--- NOTE | 2023-08-21 12:04 | PM.IMHP ---
H&P: HPI History of Present Illness Date/Time: 08/21/23 12:04 Chief Complaint: Heavy periods Narrative: 48 y/o nulligravida with mostly monthly menses associated with heavy flow and lots of cramping. She had a CT that showed a 4.8 x 3.7 cm mixed solid and cystic mass at the cervix. This was biopsied by Dr. Татьяна Granados in the office, and the report was negative for dysplasia. Endometrial sampling was insufficient. She is here for more complete sampling and also desires endometrial ablation for control of her heavy menses. Review of Systems Review of Systems: All systems reviewed & are unremarkable except as noted in HPI and below PMFSH Past Medical History Medical History (Updated 08/21/23 @ 12:07 by Eugenio Hylton MD) Anxiety Hypercholesterolemia Kidney stones Uterine fibroid UTI (urinary tract infection) Surgical History Surgical History History of lumpectomy of both breasts Family History Family History Father Hypertension Family history of elevated blood lipids, Onset Age: 62 Family history of coronary artery disease, Onset Age: 62 Patient's father is Acute myocardial infarction Mother Hypertension Family history of elevated blood lipids Patient's mother is in good health Sibling Hypertension Family history of elevated blood lipids Family history of malignant melanoma Patient's sister is in good health Patient's brother is in good health Grandparent Family history of coronary artery disease, Onset Age: 78 Social History Social History (Updated 06/06/20 @ 11:13 by COLE Beltran) Smoking packs per day: 1 Smoking cigarettes per day: 20.0 Years smoked: 25 Smoking pack-years: 25.00 Smoking status: Current every day smoker Tobacco type: cigarettes Second hand tobacco smoke exposure: No Alcohol intake: current Drinks per week: 2 Substance use: never Substance use type: does not use Living arrangements: with family Additional living arrangements comments: spouse Occupation/Education: occupation Gender identity (if verbalized by the patient): Female Sexual Orientation (if Verbalized by the Patient): Straight or Heterosexual Spiritual care concerns: No Meds Home Medications and Allergies Home Medications Medication Instructions Recorded Confirmed Type rosuvastatin 20 mg tablet 20 mg PO HS 01/04/20 08/13/23 History Allergies Allergy/AdvReac Type Severity Reaction Status Date / Time codeine Allergy Unknown hyperactivi Verified 08/21/23 12:05 ty Iodinated Contrast Media Allergy Unknown Rash Verified 08/13/23 14:29 Penicillins Allergy Unknown Unknown Verified 08/13/23 14:29 hydrocodone Allergy hyperactivi Verified 08/21/23 12:05 ty shellfish derived Allergy Rash Verified 08/13/23 14:29 ciprofloxacin [From Cipro] AdvReac Abdominal Verified 08/13/23 14:29 Pain Exam Const: Orientation/consciousness: patient oriented x3 Other: Well-developed, well-nourished female in no acute distress. Neck: Thyroid: thyroid normal Lymphatic: no lymphadenopathy noted (in neck, axilla or inguinal nodes) Resp: Effort & Inspection: normal respiratory effort Auscultation: clear to auscultation bilaterally Cardio: Rate: regular rate Rhythm: regular rhythm Heart sounds: S1 normal heart sound present and S2 normal heart sound present GI: Other: ABD: Soft, nontender, nondistended. No guarding or rebound tenderness. No hepatosplenomegaly. : General: Yes no CVA tenderness Other: External genitalia: normal female hair distribution, without lesion. Urethral meatus: no lesion, non prolapsed. Bladder: no mass, nontender Vagina: well-estrogenized, without lesion or discharge. No cystocele or rectocele. Cervix: no lesion or discharge. Uterus: small, anteverted, freely
[2023-08-21] MEDS: LACTATED RINGERS 1,000 ML 30 ML IV CONT (12:13)
[2023-08-21] MEDS: ACETAMINOPHEN 500 MG TABLET 1000 MG PO (12:13)
[2023-08-21 12:14] VITALS: BP 124/85; PULSE 86; RESP 16; TEMP 36.9; O2SAT 100
--- NOTE | 2023-08-21 12:23 | WPDHPUPDATE1 ---
History and Physical Update Update Date/Time: 08/21/23 12:23 History and Physical has been reviewed, including an updated exam of the patient. There are NO changes in the patient's condition. Risks, benefits, and alternatives have been discussed and questions answered. Patient agrees to proceed with procedure.
[2023-08-21] MEDS: LIDOCAINE HCL 1% LOCAL INJ 20 ML VIAL 10 ML INFILTRATE (14:01)
[2023-08-21 14:33] VITALS: BP 128/88; PULSE 71; RESP 14; O2SAT 98
--- NOTE | 2023-08-21 14:36 | W.PM.PROC2 ---
Procedure Note - Detailed Date of Procedure 08/21/23 Pre-op Diagnosis Menometrorrhagia Post-op Diagnosis Same Procedure Performed Hysteroscopy Hysteroscopic resection of submucous myoma Dilation and sharp curettage Endometrial ablation Surgeon Eugenio Hylton MD Anesthesia MAC and Local (1% lidocaine) Findings Nabothian cyst on the anterior, right cervix. Small submucous myoma on the posterior right aspect of the endometrial cavity. Otherwise, the endometrial tissue was thin. Both tubal ostia were seen. Description of Procedure The patient was taken to the operating room where she was prepared and draped in the usual sterile fashion in the dorsal lithotomy position. The bladder was drained with a red rubber catheter. A sterile speculum was placed into the vagina. The anterior lip of the cervix was grasped with single-tooth tenaculum. Ten mL of 1% lidocaine was administered in a paracervical block. The cervix was then gently dilated using Hegar dilators until an 8 mm dilator could be passed. Hysteroscopy was performed using sterile saline as a distention medium. Findings are as noted above. The Aveta resector tool was advanced through the hysteroscope, and the bulk of the myoma was carefully resected. Hemostasis was excellent. Sharp curettage was then performed, and endometrial curettings were collected on a Telfa pad and passed off to be sent to pathology. Finally, the the Merry device was advanced and endometrial ablation commenced without difficulty. The device was withdrawn and a second look was taken using the hysteroscope. Excellent coverage of the endometrial cavity was noted. The tenaculum was removed. Hemostasis was excellent. Sponge, lap, needle and instrument counts were correct. The patient was awakened and taken to the recovery room in stable condition. I was present and scrubbed through the entire procedure. Implants None Estimated Blood Loss 10 Drains No Packing No Pathology Yes (Endometrial curettings) Complications None Condition Stable Disposition PACU
[2023-08-21] MEDS: fentaNYL CITRATE INJ (*CRX) 100 MCG/2 ML VIAL 25 MCG IV PUSH ×2 (14:55→15:00)
[2023-08-21] MEDS: ONDANSETRON INJ 4 MG/2 ML VIAL IV PUSH (14:55)
[2023-08-21 15:00] VITALS: BP 121/72; PULSE 52; RESP 16
[2023-08-21 15:30] VITALS: BP 125/70; PULSE 54; RESP 16
[2023-08-21 16:00] VITALS: BP 130/80; PULSE 52; RESP 16
== END 2023-08-21 16:15 | disposition home or self-care (01) ==
PROVIDERS: PCP Nurse Practitioner; Visit Provider Obstetrics & Gynecology
PROC: 0U5B8ZZ Destruction of Endometrium, Via Natural or Artificial Opening Endoscopic (ICD-10-PCS; CPT 58563; principal; 2023-08-21 13:00)
DX: N92.1 Excessive and frequent menstruation with irregular cycle (principal); N88.8 Other specified noninflammatory disorders of cervix uteri; D25.0 Submucous leiomyoma of uterus; E78.00 Pure hypercholesterolemia, unspecified; F17.210 Nicotine dependence, cigarettes, uncomplicated
CPT/HCPCS: 58561; 58563; 88305; A9270; J1100; J2250; J2405; J2704; J3010; J7120

== ENCOUNTER 2024-04-03 10:57 | Emergency (ER) | payer BC, SELFPAY ==
[2024-04-03 11:06] VITALS: BP 123/82; PULSE 86; RESP 16; TEMP 36.7; O2SAT 100
--- NOTE | 2024-04-03 11:06 | ED.GENADULT ---
HPI - General Adult General Chief complaint: Eye Problems Stated complaint: RT Eye Infection Related Data Home Medications Medication Instructions Recorded Confirmed rosuvastatin 20 mg tablet 20 mg PO HS 01/04/20 04/03/24 Allergies Allergy/AdvReac Type Severity Reaction Status Date / Time Iodinated Contrast Media Allergy Mild Rash Verified 04/03/24 11:02 Penicillins Allergy Mild Rash Verified 04/03/24 11:02 shellfish derived Allergy Mild Rash Verified 04/03/24 11:02 ciprofloxacin [From Cipro] AdvReac Intermediate Abdominal Verified 04/03/24 11:02 Pain codeine AdvReac Intermediate hyperactivi Verified 04/03/24 11:02 ty hydrocodone AdvReac Intermediate hyperactivi Verified 04/03/24 11:02 ty [facility] Past Medical History Medical History (Updated 08/21/23 @ 12:07 by Eugenio Hylton MD) Anxiety Hypercholesterolemia Kidney stones Uterine fibroid UTI (urinary tract infection) Surgical History Surgical History History of lumpectomy of both breasts Family History Family History Father Hypertension Family history of elevated blood lipids, Onset Age: 62 Family history of coronary artery disease, Onset Age: 62 Patient's father is Acute myocardial infarction Mother Hypertension Family history of elevated blood lipids Patient's mother is in good health Sibling Hypertension Family history of elevated blood lipids Family history of malignant melanoma Patient's sister is in good health Patient's brother is in good health Grandparent Family history of coronary artery disease, Onset Age: 78 Social History Social History (Updated 06/06/20 @ 11:13 by COLE Beltran) Smoking packs per day: 1 Smoking cigarettes per day: 20.0 Years smoked: 25 Smoking pack-years: 25.00 Smoking status: Current every day smoker Tobacco type: cigarettes Second hand tobacco smoke exposure: No Alcohol intake: current Drinks per week: 2 Substance use: never Substance use type: does not use Living arrangements: with family Additional living arrangements comments: spouse Occupation/Education: occupation Gender identity (if verbalized by the patient): Female Sexual Orientation (if Verbalized by the Patient): Straight or Heterosexual Spiritual care concerns: No Discharge Plan Discharge Prescriptions: No Action rosuvastatin 20 mg tablet 20 mg PO HS Follow-up/Referrals: Jose Alberto,LONA Del Cid [Primary Care Provider] -
--- NOTE | 2024-04-03 11:10 | ED.EYEPROB ---
HPI - Eye Problem General Chief complaint: Eye Problems Stated complaint: RT Eye Infection Time Seen by Provider: 04/03/24 11:10 Eyelid redness Source: patient and RN notes reviewed Mode of arrival: ambulatory Limitations: no limitations History of Present Illness HPI Narrative: 48 Year old female presents with concern for painful, tender, swollen right lower eyelid for 2 days. She reports she tried a hot compress 1 time without relief. She reports that her eye was crusty this morning and slightly itchy. She denies vision changes MD chief complaint: eye redness Related Data Home Medications Medication Instructions Recorded Confirmed rosuvastatin 20 mg tablet 20 mg PO HS 01/04/20 04/03/24 Allergies Allergy/AdvReac Type Severity Reaction Status Date / Time Iodinated Contrast Media Allergy Mild Rash Verified 04/03/24 11:02 Penicillins Allergy Mild Rash Verified 04/03/24 11:02 shellfish derived Allergy Mild Rash Verified 04/03/24 11:02 ciprofloxacin [From Cipro] AdvReac Intermediate Abdominal Verified 04/03/24 11:02 Pain codeine AdvReac Intermediate hyperactivi Verified 04/03/24 11:02 ty hydrocodone AdvReac Intermediate hyperactivi Verified 04/03/24 11:02 ty Review of Systems Review of Systems: CONSTITUTIONAL: Denies malaise, chills, sweats, or fever. EYES: Denies visual changes. Reports redness, irritation, discomfort of the right lower eyelid ENT: Denies rhinorrhea, congestion, sinus pain, otalgia or sore throat. SKIN: Denies rash or itching. NEUROLOGIC: Denies numbness, weakness, or headache. PSYCHIATRIC: Denies anxiety or depression. All systems reviewed & are unremarkable except as noted in HPI and below PMFSH Past Medical History Medical History (Updated 04/03/24 @ 11:18 by Felicity Farrar NP) Anxiety Hypercholesterolemia Kidney stones Uterine fibroid UTI (urinary tract infection) Surgical History Surgical History History of lumpectomy of both breasts Family History Family History Father Hypertension Family history of elevated blood lipids, Onset Age: 62 Family history of coronary artery disease, Onset Age: 62 Patient's father is Acute myocardial infarction Mother Hypertension Family history of elevated blood lipids Patient's mother is in good health Sibling Hypertension Family history of elevated blood lipids Family history of malignant melanoma Patient's sister is in good health Patient's brother is in good health Grandparent Family history of coronary artery disease, Onset Age: 78 Social History Social History (Updated 06/06/20 @ 11:13 by COLE Beltran) Smoking packs per day: 1 Smoking cigarettes per day: 20.0 Years smoked: 25 Smoking pack-years: 25.00 Smoking status: Current every day smoker Tobacco type: cigarettes Second hand tobacco smoke exposure: No Alcohol intake: current Drinks per week: 2 Substance use: never Substance use type: does not use Living arrangements: with family Additional living arrangements comments: spouse Occupation/Education: occupation Gender identity (if verbalized by the patient): Female Sexual Orientation (if Verbalized by the Patient): Straight or Heterosexual Spiritual care concerns: No Comments At time of signature, agree with nursing past medical, surgical, social and family history. There is no relevant family history pertinent to the presenting complaint Exam Narrative: GENERAL: Well-appearing, well-nourished, and in no acute distress. HEAD: Normocephalic, atraumatic. EYES: PERRLA, sclera clear, and EOMI. No nystagmus. Bilateral conjunctivae clear. Left Upper and lower eyelid unremarkable, no periorbital edema noted. Hordeolum internum noted to the right lower eyelid ENT: Nares clear. Mucous membranes moist. NECK: Supple. CHEST: No respiratory distress. Speaks in full sentences. HEART: Regular rate and rhythm. SKIN: Warm, dry, no visible rash. NEURO: Alert and oriented x3. PSYCH: Normal mood and affect Course Course Emergency Course: Patient is aware of diagnosis, understands and agrees to treatment plan. Anticipatory guidance given. Patient agrees to follow-up as directed and is aware of reasons to seek care at the emergency department. Portions of this record may have been created with voice recognition software Level of Care: Express Care Visit Vital Signs Vital signs: Vital Signs Temperature 98.1 F 04/03/24 11:06 Pulse Rate 86 04/03/24 11:06 Respiratory Rate 16 04/03/24 11:06 Blood Pressure 123/82 04/03/24 11:06 Pulse Oximetry 100 04/03/24 11:06 Oxygen Delivery Room Air 04/03/24 11:06 Temperature 98.1 F 04/03/24 11:06 Pulse Rate 86 04/03/24 11:06 Respiratory Rate 16 04/03/24 11:06 Blood Pressure 123/82 04/03/24 11:06 Pulse Oximetry 100 04/03/24 11:06 Oxygen Delivery Room Air 04/03/24 11:06 Reviewed. MDM - Eye Problem MDM Narrative Medical decision making narrative: Consideration of the following conditions may be warranted for the presenting problem, they are not final diagnoses: Bacterial conjunctivitis, allergic conjunctivitis, viral conjunctivitis, foreign body, blepharitis, chalazion, hordeolum, corneal abrasion, preseptal cellulitis, orbital cellulitis. No evidence of proptosis, ophthalmoplegia, vision loss, pain with eye movement. Exam findings show no acute concerns or changes; patient is non-toxic appearing and is in no distress. Patient is appropriate for outpatient treatment and follow-up. Critical Care Time Critical Care Time Critical Care Time: No Discharge Plan Discharge Clinical Impression: Hordeolum internum of right lower eyelid Patient Disposition: Home, Self-Care Condition: Stable Instructions: Devin (ED) Additional Instructions: Do not touch or rub your eye. Use a warm washcloth on your eye 15 minutes on and 15 minutes out Use eyedrops as directed You may take Tylenol or ibuprofen for pain Follow-up with PCP or photoengraver if condition is not improving in 2-3days. Go to the emergency room if you have pain behind your eye, pressure behind your eye, difficulty seeing, or other severe symptoms Prescriptions: New polymyxin B sulf-trimethoprim 10,000 unit- 1 mg/mL drops 1 drp RIGHT EYE Q3H 7 Days Qty: 10 0RF Rx Instructions: while awake; do not exceed 6 doses in 24 hours No Action rosuvastatin 20 mg tablet 20 mg PO HS Follow-up/Referrals: Jose Alberto,LONA Del Cid [Primary Care Provider] - Time of Disposition: 11:18
== END 2024-04-03 11:21 | disposition home or self-care (01) ==
PROVIDERS: Emergency Provider Nurse Practitioner; PCP Nurse Practitioner
DX: H00.022 Hordeolum internum right lower eyelid (principal); F17.210 Nicotine dependence, cigarettes, uncomplicated; E78.00 Pure hypercholesterolemia, unspecified
CPT/HCPCS: 99213; G0463